=== PATIENT | male | born 1940 | race Two or more races ===

== ENCOUNTER 2017-04-15 06:38 | Day surgery (SDC) | payer OTHER ==
[2017-04-15] MEDS ORDERED: IV NORMAL SALINE 1000 ML BAG IV ONE (06:39)
[2017-04-15] MEDS ORDERED: BALANCED SALT IRRIG SOLN COMB1 500 ML, VANCOMYCIN FOR BSS PLUS 10 MG, GENTAMICIN SULFAT... IO ONE ×4 (07:00)
[2017-04-15] MEDS ORDERED: VANCOMYCIN FOR CATARACT SURGERY MC ONE ×2 (07:00)
[2017-04-15] MEDS ORDERED: FLURBIPROFEN 0.03% OPHT DROP 2.5 ML BOTTLE ONE (07:39)
[2017-04-15] MEDS ORDERED: CIPROFLOXACIN 0.3% OPHT DROP 2.5 ML BOTTLE ONE (07:39)
[2017-04-15] MEDS ORDERED: PHENYLEPHRINE 2.5% OPHT DROP 2 ML BOTTLE ONE (07:40)
[2017-04-15] MEDS ORDERED: TROPICAMIDE 1% OPHT DROP 3 ML BOTTLE ONE (07:40)
[2017-04-15] MEDS ORDERED: CYCLOPENTOLATE 1% OPHT DROP 2 ML BOTTLE ONE (07:40)
[2017-04-15] MEDS ORDERED: NEO/POLYMYX B/DEXAME OPHT OINT 3.5 GM TUBE ONE (07:50)
[2017-04-15] MEDS ORDERED: TETRACAINE HCL 0.5% OPHT DROP 2 ML BOTTLE ONE (07:50)
[2017-04-15] MEDS ORDERED: TIMOLOL MALEATE 0.5% OPHT DROP 5 ML BOTTLE ONE (07:50)
[2017-04-15] MEDS ORDERED: LIDOCAINE-MPF 2% 5 ML VIAL ONE (07:50)
[2017-04-15] MEDS ORDERED: BALANCED SALT IRRIG SOLN COMB2 15 ML IRRIG.SOLN ONE (07:51)
[2017-04-15] MEDS ORDERED: EPINEPHRINE 1 MG/1 ML AMP ONE (07:51)
[2017-04-15] MEDS ORDERED: ACETYLCHOLINE CHLORIDE 1% OPHT 1 EA KIT ONE (07:51)
[2017-04-15] MEDS ORDERED: LIDOCAINE HCL-MPF 1% 5 ML VIAL ONE (07:51)
[2017-04-15] MEDS ORDERED: BUPIVACAINE PF 0.5% 30 ML VIAL ONE (07:52)
[2017-04-15] MEDS ORDERED: HYALURONATE SODIUM 8.5 MG/0.85 ML DISP.SYRIN ONE (07:52)
[2017-04-15] MEDS ORDERED: HYALURONATE SODIUM 12.8 MG/0.8 ML DISP.SYRIN ONE (07:52)
[2017-04-15] MEDS ORDERED: HYALURONIDASE,OVINE 200 UNITS/ML VIAL ONE (07:52)
[2017-04-15] MEDS ORDERED: FENTANYL CITRATE 100 MCG/2 ML AMPUL ONE (08:21)
[2017-04-15] MEDS ORDERED: TRYPAN BLUE 0.5 ML DISP.SYRIN ONE (08:38)
[2017-04-15] MEDS ORDERED: BALANCED SALT IRRIG SOLN COMB1 500 ML ONE (09:01)
== END 2017-04-15 10:25 | disposition home or self-care (01) ==
LOC: DS 06:38
PROVIDERS: ATTEND Ophthalmology
DX: H26.9 Unspecified cataract (principal); I10 Essential (primary) hypertension; E11.9 Type 2 diabetes mellitus without complications; Z98.890 Other specified postprocedural states
CPT/HCPCS: A4663; J0171; J1580; J3010; J3370; J3471; J3490; J7030; J7321; Q9968; V2632